=== PATIENT | female | born 1995 | race African-American/Black ===

== ENCOUNTER 2017-04-14 15:59 | Outpatient (CLI) | payer BC ==
--- NOTE | 2017-04-15 08:17 | XRay Report ---
RIGHT ANKLE RADIOGRAPHS INDICATION: Left ankle rolling injury while playing dodge football. COMPARISON: None similar at this institution. FINDINGS: AP, lateral and oblique right ankle radiographs demonstrate intact mortise, malleoli and talar dome contour. Diffuse ankle soft tissue swelling, greatest/moderate laterally. CONCLUSION: Right ankle soft tissue swelling/injury possible without acute bony abnormality, as described. Please correlate. Thank you for the opportunity to participate in this patient's care.
== END 2017-04-14 16:00 | disposition home or self-care (01) ==
LOC: XRAY 15:59
PROVIDERS: ATTEND Pediatrics
DX: S99.812A Other specified injuries of left ankle, initial encounter (principal); X58.XXXA Exposure to other specified factors, initial encounter; Y93.61 Activity, american tackle football; Y92.89 Other specified places as the place of occurrence of the external cause; Y99.8 Other external cause status